=== PATIENT | female | born 1980 | race Caucasian/White ===

== ENCOUNTER 2017-02-10 17:02 | Emergency (ER) | payer OTHER ==
[2017-02-10 17:35] VITALS: BP 131/95
--- NOTE | 2017-02-10 18:13 | UC ---
Skin Complaint HPI - HPI Summary HPI Summary: LAST NIGHT FELT SPIDER BITE LEFT BUTTOCKS LAST NIGHT. BLISTER DEVELOPED. NO DISCHARGE. AREA IS RED TENDER AND FOWLER. 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 Negative: Fever , Chills, Cough, Chest Pain, Hoarseness, Throat Tightening, Rash, Drainage Related History: Insect Bite/Sting - Allergy/Home Medications Allergies/Adverse Reactions: Allergies Allergy/AdvReac Type Severity Reaction Status Date / Time Penicillins Allergy Unknown Verified 02/10/17 17:35 Reaction Details Review of Systems Constitutional: Negative Skin: Rash - LEFT BUTTOCKS Eyes: Negative ENT: Negative Respiratory: Negative Cardiovascular: Negative Gastrointestinal: Negative Genitourinary: Negative Motor: Negative Neurovascular: Negative Musculoskeletal: Negative Neurological: Negative Psychological: Negative All Other Systems Reviewed And Are Negative: Yes PMH/Surg Hx/FS Hx/Imm Hx Previously Healthy: Yes - Surgical History Surgical History: Yes Surgery Procedure, Year, and Place: E-ssure procedure 06/17/2014 done at [facility], GB removed; 7 weeks later 2X inguinal hernia repair done at 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 tonsillectomy at 8 years of age. - Family History Known Family History: Positive: None, Unknown - Social History Occupation: Employed Full-time Lives: With Family Alcohol Use: Occasionally Substance Use Type: None Smoking Status (MU): Light Every Day Tobacco Smoker Type: Cigarettes Amount Used/How Often: 1/2 PPD Length of Time of Smoking/Using Tobacco: 15 Years Have You Smoked in the Last Year: Yes Household Exposure Type: Cigarettes - Immunization History Most Recent Influenza Vaccination: March 2015 Physical Exam Triage Information Reviewed: Yes Appearance: Well-Appearing, No Pain Distress, Well-Nourished Vital Signs: Initial Vital Signs Temp 98.1 F 02/10/17 17:31 Pulse 93 02/10/17 17:31 Resp 14 02/10/17 17:31 BP 131/95 02/10/17 17:31 Pulse Ox 99 02/10/17 17:31 Vital Signs Reviewed: Yes Eye Exam: Normal ENT Exam: Normal ENT: Positive: Normal ENT inspection, Hearing grossly normal, TMs normal Dental Exam: Normal Neck exam: Normal Neck: Positive: Supple, Nontender, No Lymphadenopathy Respiratory Exam: Normal Respiratory: Positive: Chest non-tender, Lungs clear, Normal breath sounds, No respiratory distress Cardiovascular Exam: Normal Cardiovascular: Positive: RRR, No Murmur, Pulses Normal Abdominal Exam: Normal Abdomen Description: Positive: Nontender, No Organomegaly Musculoskeletal Exam: Normal Musculoskeletal: Positive: Strength Intact Neurological Exam: Normal Psychological Exam: Normal Skin: Positive: rashes - 3CM CIRCULAR ERYTHEMATOUS AREA LEFT BUTTOCKS WITH 1mm X1mm AREA OF PUSTULAR CENTRAL FLUCTUANCE Course/Dx - Course Course Of Treatment: PATIENT REFUSED TO HAVE ABSCESS INCISED. ANTIBIOTICS PRESCRIBED - Differential Diagnoses - Skin Complaint Differential Diagnoses: Allergic Reaction, Cellulitis, Contact Dermatitis, Eczema, MRSA, Scabies, Tick Born Illness, Tinea - Diagnoses Provider Diagnoses: INSCEST BITE LEFT BUTTOCKS, ABSCESS Discharge - Discharge Plan Condition: Stable Disposition: HOME Prescriptions: DOXYcycline CAP(*) [DOXYcycline 100MG CAP(*)] 100 mg PO BID #14 cap Patient Education Materials: Insect Bite or Sting (ED), Abscess (ED) Referrals: Cortney Orantes MD [Primary Care Provider] - Images Front/Back of Body, Lg ([place]): 1 - 3CM CIRCULAR ERYTHEMATOUS AREA LEFT BUTTOCKS WITH 1mm X1mm AREA OF PUSTULAR CENTRAL FLUCTUANCE
== END 2017-02-10 18:10 | disposition home or self-care (01) ==
LOC: UCCORT 17:02
DX: S30.860A Insect bite (nonvenomous) of lower back and pelvis, initial encounter (principal); W57.XXXA Bitten or stung by nonvenomous insect and other nonvenomous arthropods, initial encounter; Y93.9 Activity, unspecified; Y92.9 Unspecified place or not applicable; L02.31 Cutaneous abscess of buttock; Z88.0 Allergy status to penicillin; F17.210 Nicotine dependence, cigarettes, uncomplicated
CPT/HCPCS: 99211; G0463

== ENCOUNTER 2017-12-18 09:16 | Emergency (ER) | payer BC, OTHER ==
[2017-12-18 09:31] VITALS: BP 137/87
--- NOTE | 2017-12-18 10:08 | UC ---
Back Pain HPI - HPI Summary HPI Summary: patient states that last night she could not sleep due to neck and upper back pain which is prevented her from sleeping. She feels neck stiffness and thoracic pain which radiates forward to her chest, throbbing intermittently. She denies palpitations, SOB , numbness or weakness on arms. 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 She denies any triggering activities or lifting. 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 She smokes and is cutting back, has HTN on metoprolol. Motrin and tylenol are not working - History of Current Complaint Chief Complaint: UCChestPain Stated Complaint: Back and Chest Pain Hx Obtained From: Patient Hx Last Menstrual Period: s/p Essure and Uterine Ablation ?: No Onset/Duration: Sudden Onset, Lasting Hours Timing: Constant Severity Initially: Moderate Severity Currently: Severe Pain Intensity: 7 Back Pain: Is Discrete @ - thorax and neck Character: Dull, Throbbing Aggravating Factor(s): Movement Alleviating Factor(s): Nothing Associated Signs And Symptoms: Positive: Negative - Risk Factors AAA Risk Factors: Smoking Cauda Equina Risk Factors: Negative Epidural Abscess Risk Factors: Negative - Allergies/Home Medications Allergies/Adverse Reactions: Allergies Allergy/AdvReac Type Severity Reaction Status Date / Time Penicillins Allergy Unknown Verified 12/18/17 09:27 Reaction Details Home Medications: Home Medications Metoprolol Tartrate TAB* [Lopressor TAB*] 50 mg PO DAILY 12/18/17 [History Confirmed 12/18/17] PMH/Surg Hx/FS Hx/Imm Hx Cardiovascular History: Hypertension - Surgical History Surgical History: Yes Surgery Procedure, Year, and Place: E-ssure procedure 06/17/2014 done at [facility], GB removed; 7 weeks later 2X inguinal hernia repair done at [facility]; breast augumentation 2006 done in [facility] BX of cervix 2005 benign results; 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 tonsillectomy at 8 years of age. - Family History Known Family History: Positive: None, Unknown - Social History Alcohol Use: Occasionally Substance Use Type: None Smoking Status (MU): Heavy Every Day Tobacco Smoker Type: Cigarettes Amount Used/How Often: 1/2 PPD Length of Time of Smoking/Using Tobacco: Since Age 18 Have You Smoked in the Last Year: Yes Household Exposure Type: Cigarettes - Immunization History Most Recent Influenza Vaccination: March 2015 Review of Systems Cardiovascular: Chest Pain Musculoskeletal: Arthralgia, Myalgia All Other Systems Reviewed And Are Negative: Yes Physical Exam Triage Information Reviewed: Yes Appearance: Pain Distress, Obese Vital Signs: Initial Vital Signs Temp 98.6 F 12/18/17 09:28 Pulse 76 12/18/17 09:28 Resp 16 12/18/17 09:28 BP 137/87 12/18/17 09:28 Pulse Ox 100 12/18/17 09:28 Vital Signs Reviewed: Yes Eyes: Positive: Conjunctiva Clear ENT: Positive: Pharynx normal Neck: Positive: Supple, No Lymphadenopathy, Tenderness @ - along spinous processes and paraspinal muscle, supraspinatus Respiratory: Positive: Chest non-tender, Lungs clear, Normal breath sounds, No respiratory distress, No accessory muscle use Cardiovascular: Positive: RRR, No Murmur, Pulses Normal, Brisk Capillary Refill Abdomen Description: Positive: Nontender, No Organomegaly, Soft Bowel Sounds: Positive: Present Musculoskeletal Exam: Other - tenderness paraspinal palpation along T1-T7 Musculoskeletal: Positive: Strength Intact, ROM Intact, No Edema Neurological: Positive: Alert, Muscle Tone Normal Skin Exam: Normal Back Pain Course/Dx - Course Course Of Treatment: Patient in extreme pain, needs imaging services and MRI c- spine and T-spine, referred to hospital for testing, to take vicodin as prescribed . - Differential Dx/Diagnosis Provider Diagnoses: cervicalgia. Thoracic pain Discharge - Sign-Out/Discharge Documenting (check all that apply): Discharge/Admit/Transfer - Discharge Plan Condition: Guarded Disposition: TRANS HIGHER LVL OF CARE FAC Prescriptions: Hydrocodone/Acetaminophen [Vicodin 5-300 mg] 1 tab PO QID 2 Days #8 tab MDD 4p Patient Education Materials: Cervical Strain (ED), Thoracic Pain (ED), Hydrocodone/Acetaminophen (By mouth) Referrals: Cortney Orantes MD [Primary Care Provider] - Additional Instructions: Please transfer to ER for diagnostic work up for thoracic pain. - Billing Disposition and Condition Condition: GUARDED Disposition: Trans Higher Lvl of Care Fac
== END 2017-12-18 10:10 | disposition short-term general hospital (02) ==
LOC: UCCORT 09:16
DX: M54.2 Cervicalgia (principal); M54.6 Pain in thoracic spine; Z88.0 Allergy status to penicillin; I10 Essential (primary) hypertension; F17.210 Nicotine dependence, cigarettes, uncomplicated
CPT/HCPCS: 93005; 99212; G0463

== ENCOUNTER 2018-03-19 20:30 | Emergency (ER) | payer BC ==
--- OUTSIDE RECORDS SUMMARY | 2018-03-19 20:40 | XMS REPORT | Continuity of Care Document ---
:1980 External Reference #:[id number] Author Name Cortney Orantes M.D. Address [address] [place] [address] Care Team Providers Name Role Phone Cortney Orantes MD Primary Care Physician Unavailable Payers Type Date Identification Numbers Payment Provider Subscriber Policy Number: [id number] Excellus Calderon Canales PayID: [id number] [address] [address] [place] [address] Policy Number: [id number] [employer] Depze Canales PayID: [id number] [address] [place] [address] Expires: 2008 Policy Number: [id number] [employer] Shawnee Canales PayID: [id number] [address] [place] [address] Advance Directives Description No Information Available Problems Date Description Provider Status Onset: 10/05/2010 Abnormal weight gain Cortney Orantes M.D. Active Onset: 03/03/2012 Acute pharyngitis Eladia Fitch MD Active Onset: 03/03/2012 Otitis media Eladia Fitch MD Active Onset: 12/11/2013 Gastroesophageal reflux disease Cortney Orantes M.D. Active Onset: 12/11/2013 Tobacco user Cortney Orantes M.D. Active Family History Date Family Member(s) Problem(s) Comments General Heart Disease General Diabetes Type 2 General Breast Cancer General Mental Illness Father Hypertention Father Lung Cancer Mother Hypertention Mother Hypercholesterolemia Mother Heart Disease First Sister due to Heart Disease () Paternal Uncles Hepatitis Social History Type Date Description Comments Sex Unknown Tobacco Use Start: Unknown Current Cigarette Smoker 1 Pack Daily ETOH Use Rarely consumes alcohol Tobacco Use Start: Unknown Patient is a current smoker, smokes every day Smoking Status Reviewed: 07/13/17 Patient is a current smoker, smokes every day Seat Belt/Car Seat Always uses a seat belt Allergies, Adverse Reactions, Alerts Date Description Reaction Status Severity Comments 08/28/2007 PCN Active Medications Medication Date Status Form Strength Qnty SIG Indications Ordering Provider Mirian Spa 03/08 Active as M54.14 directed Gauss, for back M.D. pain recommeded by Complaint Evaluation Supervisor Hydrocodone-Aceta 12/20 Active Tablets 10-325mg 30tab tab 1 by M54.14 Cortney minophen s mouth Gauss, every M.D. -6hours as needed pain Alprazolam 07/13 Active Tablets 0.25mg 90tab 1 by mouth F41.1 s three Gauss, times a M.D. day as needed anxiety Nicotine 04/20 Active Patches 21mg/24HR 14uni apply one Cortney Transdermal 24HR ts patch to Lamberto, System Step 1 skin daily M.D. Metoprolol 03/28 Active Tablets 50mg 90tab Tab 1 By I11.9 Cortney Tartrate s Mouth Gauss, Daily M.D. Abdominal 02/23 Active Misc 1unit as K42.9 Cortney Binder/Elastic s directed Lamberto, Large M.D. Blood Pressure 05/28 Active Misc 1unit Dx HTN I11.9 Cortney Monitor s Gauss, Inflate M.D. Omeprazole 12/[address] 20mg 90cap 1 by mouth 530.81 s twice a Gauss, day M.D. Azithromycin 10/12 Hx Tablets 250mg 6tabs 2 by mouth J20.9 Cortney today, 1 Gauss, - by mouth M.D. 12/20 day 2 thru 5 Cheratussin ac 10/12 Hx Solution 100-10mg/ 118ml 5 J20.9 5ML milliliter Gauss, - s every 6 M.D. 12/20 hours needed cough Buspirone HCL 02/23 Hx Tablets 5mg 60tab 1 by mouth F41.1 s twice a Gauss, - day M.D. 07/13 Azithromycin 05/17 Hx Tablets 250mg 6tabs 2 by mouth J20.9 today, 1 Lamberto, - by mouth M.D. 02/23 day 2 thr 5 Align 05/26 Hx Capsules 4mg 90cap 1 po tid s Lamberto, - M.D. 07/13 Azithromycin 03/18 Hx Tablets 250mg 6tabs 2 by mouth J01.90 Cortney today, 1 Lamberto, - by mouth M.D. 05/26 day 2 thr 5 Tessalon Perles 03/18 Hx Capsules 100mg 60cap 1 by mouth J01.90 s every 8hr Lamberto, - as needed M.D. 05/26 Work Note 03/18 Hx THe above J01.90 is excused Lamberto, - from work M.D. 02/23 03/18 and 03/19/16 Furosemide 12/30 Hx Tablets 20mg 30tab 1 by mouth I11.9 s every in Lamberto, - the M.D. 07/13 Sphygmomanometer 05/27 Hx Misc 1unit as I11.9 Cortney Aneroid Manual /2014 s directed Lamberto, Blood Pressure - M.D. Monitor 05/28 Atenolol 05/06 Hx Tablets 50mg 90tab 1 By Mouth I11.9 Cortney s Daily In Lamberto, - Evening M.D. 03/28 Phendimetrazine 10/24 Hx Caps ER 105mg 30cap 1 po daily 783.1 Cortney Tartrate ER /2014 24HR s Lamberto, - M.D. 05/06 Proair HFA 10/24 Hx Aerosol 108(90Bas 8.500 2 puffs 4 493.92 Cortney e) gm x daily Lamberto, - mcg/Act M.D. 07/13 Chantix Starting 10/24 Hx Tablets 0.5mg X 30tab as Cortney Month 11 & 1 mg s directed Lamberto, - X 42 M.D. 03/18 Ciprofloxacin HCL 10/09 Hx Tablets 250mg 14tab 1 by mouth 599.00 s twice a Lamberto - day Alyssa.DErasto 10/15 Contrave 05/08 Hx Tablets ER 8-90mg 60tab 1 by mouth 783.1 Cortney 12HR s daily Elda Orantes M.D. 10/24 Bupropion HCL ER 12/11 Hx Tablets ER 150mg 90tab 1 by mouth 305.1 12HR s every day Elda Orantes M.D. 03/11 Mylanta Gas 09/11 Hx Capsules 125mg 90cap 1 po q 2 569.89 Cortney Relief s hours Lamberto Strength - M.DErasto 07/13 Work Note 09/11 Hx The above 553.10 is excused Lamberto - from work M.DErasto 10/24 until 09/18/13 Malathion 05/29 Hx Lotion 0.5% 8oz apply to skin from Lamberto, - neck down, M.Susan 06/06 leave on for 1/2 hour then rinse off thoroughly Physicial 05/17 Hx no contraindi - cations to 05/30 employment at [employer] identified at this visit Bontril PDM 05/15 Hx Tablets 35mg 90tab 1 po tid Elda Moreno M.D. 03/11 Proair HFA 03/06 Hx Aerosol 108(90Bas 8.500 2 puffs 4 493.92 e) mcg/ac gm x daily Elda Orantes M.D. 10/24 Ciprofloxin 03/06 Hx Tablets 500mg 14tab 1 po bid 493.92 Elda Moreno M.D. 05/15 Azithromycin 03/03 Hx Tablets 250mg 6tabs 2 po 466.00 today, 1 MD Constantine - po day 2 05/15 thru Work Note 03/03 Hx calderon will be off Lamberto, - work until M.D. 05/15 Azithromycin Hx Tablets 250mg 6tabs 2 po 466.00 Cortney today, 1 Lamberto, - po day 2 M.D. 11/17 thru Meloxicam 04/12 Hx Tablets 15mg 100ta 1 po qd 724.4 Elda Souza M.D. 05/15 Tramadol 04/12 Hx Tablets 37.5-325m 30tab 1 po q 6 724.4 Cortney Hydrochloride/ g s hours remberto Orantes taminophen - pain MSegundo 05/15 Bontril PDM 04/12 Hx Tablets 35mg 84tab 1 po 06/28 783.1 s mickey Orantes - before Dina 05/15 Soma 02/08 Hx Tablets 350mg 60tab 1 po bid 847.1 Elda Moreno M.D. 05/15 Cyclobenzaprine 01/07 Hx Tablets 10mg 60tab take 1 847.1 s tablet by Lamberto - mouth M.Susan 02/08 times a day if needed Ibuprofen 01/07 Hx Tablets 600mg 60tab 1 po q 724.4 s 6hrs prElda Hurtado M.D. 04/12 Chantix 01/07 Hx Tablets 0.5mg 1tabs as 305.1 directed; Lamberto - starter M.Susan 05/15 Ciprofloxacin HCL 11/03 Hx Tablets 250mg 20tab 1 po bid 599.0 Elda Moreno M.D. 01/07 Bontril PDM 10/05 Hx Tablets 35mg 84tab 1 po 06/28 783.1 nikhil Orantes - before Dina 01/07 Guaifenesin 07/08 Hx Tablets 200mg 60tab 1 po bid 784.91 Elda Moreno M.D. 08/25 Flagyl 12/13 Hx Tablets 500mg 20tab 1 po bid nikhil Fitch MD - 07/08 Seasonique 12/05 Hx Tablets Cortney Elda Orantes M.D. 07/08 Phentermine 09/26 Hx Capsules 37.5mg 30cap 1 po qd 783.1 Elda Moreno M.D. 10/05 Phentermine 09/10 Hx Capsules 30mg 60cap 1 po q day 783.1 Elda Moreno M.D. 09/26 Avelox 08/27 Hx Tablets 400mg 10tab 1 po qd Elda Michaels M.D. 11/04 Albuterol 08/27 Hx Aerosol 90mcg/Dos 1unit 2 puff qid 486 Cortney e Elda Moreno M.D. 11/04 Mucinex 08/27 Hx Tablets 600mg 30tab 1 PO bid 486 Elda Oneil M.D. 11/04 Depo-Provera Hx Suspension 150mg/ml 1 Inj Q3mo Unknown /0000 - 10/24 Medications Administered in Office Medication Date Status Form Strength Qnty SIG Indications Ordering Provider PPD Administered Injection Cortney Orantes, 8 M.DErasto PPD Administered Injection Nurse 6 PPD Administered Injection Nurse 5 PPD Administered Injection Cortney Orantes, 3 M.DErasto PPD Administered Injection Cortney Orantes, 1 MErastoDErasto PPD Administered Injection Nurse 0 Immunizations CPT Code Status Date Vaccine Lot # [id number] Given 03/18/2017 Influenza Virus (Afluria) Split Virus 3 Years [id number] Of Age And Older Q2037 Given 05/26/2016 Influenza Vaccine (Fluvirin) 1 Years Of Age Or [id number] Older Q2035 Given 03/21/2015 Influenza Virus (Afluria) Split Virus 3 Years [id number] Of Age And Older Q2037 Given 03/11/2014 Influenza Vaccine (Fluvirin) 1 Years Of Age Or [id number] Older Q2037 Given 05/15/2013 Influenza Vaccine (Fluvirin) 1 Years Of Age Or [id number] Older Q2037 Given 05/08/2012 Influenza Vaccine (Fluvirin) 3 Years Of Age Or Older Q2037 Given 05/08/2012 Influenza Vaccine (Fluvirin) 1 Years Of Age Or [id number] Older Q2036 Given 06/14/2011 Flulaval [id number] Given 06/14/2011 Influenza Vaccine [id number] Given 03/27/2010 Influenza Vaccine [id number] 84058 Given 03/21/2009 Influenza Vaccine 00352 Given 08/11/2007 DT Immunization DIP/Tet (History Only) Vital Signs Date Vital Result Comment 03/08/2018 11:10am BP Systolic 120 mmHg BP Diastolic 78 mmHg Height 64 inches 5'4" Weight 174.00 lb BMI (Body Mass Index) 29.9 kg/m2 01/30/2018 11:08am BP Systolic 140 mmHg BP Diastolic 80 mmHg Heart Rate 77 /min Respiratory Rate 18 /min Height 64 inches 5'4" Weight 174.00 lb BMI (Body Mass Index) 29.9 kg/m2 O2 % BldC Oximetry 97 % 01/03/2018 3:13pm BP Systolic 128 mmHg BP Diastolic 80 mmHg Heart Rate 73 /min Respiratory Rate 18 /min Height 64 inches 5'4" Weight 184.00 lb BMI (Body Mass Index) 31.6 kg/m2 O2 % BldC Oximetry 95 % 12/20/2017 11:24am BP Systolic 126 mmHg BP Diastolic 80 mmHg Heart Rate 83 /min Respiratory Rate 18 /min Height 64 inches 5'4" Weight 184.00 lb BMI (Body Mass Index) 31.6 kg/m2 O2 % BldC Oximetry 96 % 07/13/2017 1:35pm BP Systolic 128 mmHg BP Diastolic 70 mmHg Heart Rate 91 /min Height 64 inches 5'4" Weight 184.00 lb BMI (Body Mass Index) 31.6 kg/m2 04/25/2017 1:59pm BP Systolic 130 mmHg BP Diastolic 86 mmHg BP Systolic Recheck 110 mmHg BP Diastolic Recheck 82 mmHg 02/23/2017 3:46pm BP Systolic 130 mmHg BP Diastolic 80 mmHg 11/10/2016 3:51pm BP Systolic 122 mmHg BP Diastolic 74 mmHg Body Temperature 96.0 F 06/17/2016 10:30am BP Systolic 110 mmHg BP Diastolic 64 mmHg 05/26/2016 3:24pm BP Systolic 126 mmHg BP Diastolic 70 mmHg Height 66 inches 5'6" Weight 186.00 lb BMI (Body Mass Index) 30.0 kg/m2 03/18/2016 11:09am BP Systolic 120 mmHg BP Diastolic 68 mmHg Body Temperature 99.1 F 12/31/2015 3:41pm BP Systolic 122 mmHg BP Diastolic 84 mmHg Height 66 inches 5'6" Weight 183.00 lb BMI (Body Mass Index) 29.5 kg/m2 10/01/2015 3:34pm BP Systolic 130 mmHg BP Diastolic 80 mmHg Height 66 inches 5'6" Weight 181.00 lb BMI (Body Mass Index) 29.2 kg/m2 07/03/2015 2:20pm BP Systolic 118 mmHg BP Diastolic 78 mmHg 05/27/2015 3:26pm BP Systolic 112 mmHg BP Diastolic 60 mmHg BP Systolic Recheck 106 mmHg BP Diastolic Recheck 70 mmHg 05/06/2015 2:52pm BP Systolic 162 mmHg BP Diastolic 96 mmHg BP Systolic Recheck 160 mmHg BP Diastolic Recheck 90 mmHg 10/24/2014 12:15pm BP Systolic 132 mmHg BP Diastolic 64 mmHg 08/20/2014 2:13pm BP Systolic 130 mmHg BP Diastolic 70 mmHg 05/08/2014 3:21pm BP Systolic 144 mmHg BP Diastolic 90 mmHg 03/11/2014 12:15pm BP Systolic 128 mmHg BP Diastolic 88 mmHg Heart Rate 80 /min 12/11/2013 3:49pm BP Systolic 122 mmHg BP Diastolic 78 mmHg 09/11/2013 2:35pm BP Systolic 114 mmHg BP Diastolic 70 mmHg 07/31/2013 11:09am BP Systolic 122 mmHg BP Diastolic 76 mmHg Height 65 inches 5'5" Weight 163.00 lb BMI (Body Mass Index) 27.1 kg/m2 05/15/2013 2:49pm BP Systolic 130 mmHg BP Diastolic 84 mmHg Height 55 inches 4'7" Weight 164.00 lb BMI (Body Mass Index) 38.1 kg/m2 03/06/2012 11:44am BP Systolic 130 mmHg BP Diastolic 90 mmHg Body Temperature 98.2 F Height 55 inches 4'7" Weight 152.00 lb BMI (Body Mass Index) 35.3 kg/m2 03/03/2012 10:29am BP Systolic 102 mmHg BP Diastolic 70 mmHg Body Temperature 99.6 F 12/13/2011 11:10am BP Systolic 122 mmHg BP Diastolic 80 mmHg Height 66 inches 5'6" Weight 146.00 lb BMI (Body Mass Index) 23.6 kg/m2 11/18/2011 10:25am BP Systolic 130 mmHg BP Diastolic 80 mmHg 08/25/2011 11:02am BP Systolic 100 mmHg BP Diastolic 60 mmHg Body Temperature 99.2 F Height 66 inches 5'6" Weight 148.00 lb BMI (Body Mass Index) 23.9 kg/m2 06/14/2011 11:24am BP Systolic 122 mmHg BP Diastolic 70 mmHg Height 66 inches 5'6" Weight 149.00 lb BMI (Body Mass Index) 24.0 kg/m2 04/12/2011 1:28pm BP Systolic 112 mmHg BP Diastolic 70 mmHg 02/08/2011 10:41am BP Systolic 118 mmHg BP Diastolic 72 mmHg Height 63.5 inches 5'3.50" Weight 146.00 lb BMI (Body Mass Index) 25.5 kg/m2 01/11/2011 2:12pm BP Systolic 126 mmHg BP Diastolic 76 mmHg Height 63.5 inches 5'3.50" Weight 147.00 lb BMI (Body Mass Index) 25.6 kg/m2 01/07/2011 11:53am BP Systolic 120 mmHg BP Diastolic 60 mmHg Height 63.5 inches 5'3.50" Weight 146.00 lb BMI (Body Mass Index) 25.5 kg/m2 11/03/2010 3:13pm BP Systolic 124 mmHg BP Diastolic 74 mmHg Height 63.5 inches 5'3.50" Weight 147.00 lb BMI (Body Mass Index) 25.6 kg/m2 10/05/2010 1:46pm BP Systolic 121 mmHg BP Diastolic 70 mmHg Height 63.5 inches 5'3.50" Weight 152.00 lb BMI (Body Mass Index) 26.5 kg/m2 08/25/2009 12:08pm BP Systolic 132 mmHg BP Diastolic 90 mmHg Weight 135.00 lb 07/08/2009 10:57am BP Systolic 112 mmHg BP Diastolic 76 mmHg Weight 141.00 lb 12/13/2008 2:03pm BP Systolic 120 mmHg BP Diastolic 80 mmHg Weight 159.00 lb 11/04/2008 1:57pm BP Systolic 118 mmHg BP Diastolic 60 mmHg Height 63.5 inches 5'3.50" Weight 162.00 lb BMI (Body Mass Index) 28.2 kg/m2 09/27/2007 10:40am Height 63.5 inches 5'3.50" Weight 144.00 lb BMI (Body Mass Index) 25.1 kg/m2 09/11/2007 3:51pm BP Systolic 112 mmHg BP Diastolic 76 mmHg Height 63.5 inches 5'3.50" Weight 150.00 lb BMI (Body Mass Index) 26.2 kg/m2 08/28/2007 3:51pm BP Systolic 118 mmHg BP Diastolic 76 mmHg Height 63.5 inches 5'3.50" Weight 145.00 lb BMI (Body Mass Index) 25.3 kg/m2 Results Test Date Facility Test Result H/L Range Note CBS 07/11/2017 [facility] White Blood 10.1 K/uL 3.1-10.7 1 W/Automated [address] [place] [address] [phone] Red Blood Count 4.57 M/uL 3.90-5.40 Hemoglobin 14.4 gm/dL 11.6-15.8 Hematocrit 43.0 % 36.0-46.1 Mean Cell Volume 94.1 fl 80.9-99.0 Mean Corpuscular HGB 31.5 pg 25.9-32.7 Mean Corpuscular HGB Conc 33.5 g/dL 30.8-34.3 Platelet Count 360 K/uL 155-360 Red Cell Distri Width SD 43.9 fl 3-47 Red Cell Distri Width %CV 13.0 % 11.7-14.4 Mean Platelet Volume 9.9 fL 8.9-12.4 Neut% 66.9 % 40.4-72.8 Lymph % 22.9 % 20.0-42.0 [place] % 8.1 % 4.3-13.2 Eo% 1.7 % 0.0-6.6 Bas% 0.4 % 0.0-1.1 Neut# 6.76 K/uL 1.8-7.0 Lymph # 2.32 K/uL 1.0-4.0 [place] # 0.82 K/uL 0.3-0.9 Eos # 0.17 K/uL 0.0-0.5 Baso # 0.04 K/uL 0.0-0.1 Basic Metabolic 07/11/2017 [facility] Glucose 102 mg/ dL 74-[address] [place] [address] [phone] BUN 12 mg/dL 7-18 Creatinine 0.7 mg/dL 0.6-1.3 Glom Filtration Rate, Estimate >60 mL/min >60 If >60 mL/min >60 2 BUN/Creat 17.1 ratio Sodium 143 mmol/L 136-145 Potassium 4.0 mmol/L 3.5-5.1 Chloride 109 mmol/L High 98-107 Carbon Dioxide 25 mmol/L 21-32 Anion Gap 9 mEq/L 8-16 Calcium 8.4 mg/dL Low 8.5-10.1 LDL Cholesterol 07/11/2017 [facility] Cholesterol 205 mg/dL High <200 [address] [place] [address] [phone] Triglycerides 173 mg/dL High <150 4 HDL Cholesterol 34 mg/dL Low >40 5 LDL-Cholesterol 136 mg/dL < 100 6 Laboratory 04/28/2017 [facility] Urine HCG NEGATIVE Negative 7, 8 test finding [address] (Qualitative) [place] [address] [phone] Laboratory 11/29/2016 [facility] Rubella IgG 12.20 index Immune 9 test finding [address] Antibody >0.99 [place] [address] [phone] Rubeola Antibodies, Igg 186.0 AU/mL Immune >29.9 10 Mumps Antibodies, Igg 109.0 AU/mL Immune >10.9 11 Laboratory test 10/21/2016 [facility] H. Pylori Negative Negative 12, finding [address] Stool Antigen 13 [place] [address] [phone] Ova & Parasite 10/21/2016 [facility] Parasite No ova and [address] Concentrate ana <[place] [address] Exam NOTE> [phone] Permanent Trichrome Stain (SEE NOTE) 15 Cryptosporidium by Dfa NEGATIVE for Cry <SEE NOTE> 16 Urinalysis With 06/17/2016 [facility] Urine Color YELLOW Yellow [address] [place] [address] [phone] Urine Clarity CLEAR Clear Urine Glucose - Dipstick NEGATIVE mg/dL Negative Urine Bilirubin - Dipstick NEGATIVE Negative Urine Ketone NEGATIVE mg/dL Negative Urine Specific [place] 1.010 1.010-1.030 Urine Blood SMALL Negative Urine PH 6.5 6.5-7.5 Urine Protein - Dipstick NEGATIVE mg/dL Negative Urine Urobilinogen - Dipstick 0.2 E.U./dL 0.2-1.0 Urine Nitrite - Dipstick NEGATIVE Negative Urine Leuk Esterase NEGATIVE Negative Urine RBC 0-2 rbc/hpf 0-2 Urine WBC 0-2 wbc/hpf 0-7 Urine Epithelial Cells FEW /lpf None Seen Urine Bacteria FEW None Seen Source: URINE, CLEAN CAT <SEE NOTE> 18 Laboratory test 09/08/2015 [facility] Endometrial See Note [address] [place] [address] [phone] Basic Metabolic 04/26/2015 [facility] Glucose 101 mg/ dL 74-[address] [place] [address] [phone] BUN 10 mg/dL 7-18 Creatinine 0.7 mg/dL 0.6-1.3 Glom Filtration Rate, Estimate >60 mL/min >60 If >60 mL/min >60 20 BUN/Creat 14.2 ratio Sodium 140 mmol/L 136-145 Potassium 3.6 mmol/L 3.5-5.1 Chloride 108 mmol/L High 98-107 Carbon Dioxide 26 mmol/L 21-32 Anion Gap 6 mEq/L Low 8-16 Calcium 9.2 mg/dL 8.5-10.1 Laboratory test 04/26/2015 [facility] Magnesium 2.2 mg/dL 1.8-2.[address] [place] [address] [phone] CBS W/Automated 08/20/2014 [facility] White Blood 11.3 K/uL High 3.1-10.[address] [place] [address] [phone] Red Blood Count 4.41 M/uL 3.90-5.40 Hemoglobin 13.9 gm/dL 11.6-15.8 Hematocrit 41.8 % 36.0-46.1 Mean Cell Volume 94.8 fl 80.9-99.0 Mean Corpuscular HGB 31.5 pg 25.9-32.7 Mean Corpuscular HGB Conc 33.3 g/dL 30.8-34.3 Platelet Count 382 K/uL High 155-360 Red Cell Distri Width SD 44.2 fl 3-47 Red Cell Distri Width %CV 13.0 % 11.7-14.4 Mean Platelet Volume 10.1 fL 8.9-12.4 Neut% 66.7 % 40.4-72.8 Lymph % 23.5 % 17.0-46.1 [place] % 7.9 % 4.3-13.2 Eo% 1.5 % 0.0-6.6 Bas% 0.4 % 0.0-1.1 Neut# 7.54 K/uL High 1.0-7.0 Lymph # 2.65 K/uL 1.8-7.0 [place] # 0.89 K/uL 0.3-0.9 Eos # 0.17 K/uL 0.0-0.5 Baso # 0.04 K/uL 0.0-0.1 Laboratory 08/20/2014 [facility] [place] Screen NEGATIVE Negative test finding [address] (Heterophile) [place] [address] [phone] Throat-Beta 07/05/2014 [facility] Throat Beta (SEE NOTE) [address] [place] [address] [phone] Basic 05/10/2014 [facility] Glucose 73 mg/dL Low 74 -[address] [place] [address] [phone] BUN 12 mg/dL 7-18 Creatinine 0.9 mg/dL 0.6-1.3 Glom Filtration Rate, Estimate >60 mL/min >60 If >60 mL/min >60 22 BUN/Creat 13.3 ratio Sodium 138 mmol/L 136-145 Potassium 4.0 mmol/L 3.5-5.1 Chloride 107 mmol/L 98-107 Carbon Dioxide 28 mmol/L 21-32 Anion Gap 7 mEq/L Low 8-16 Calcium 9.2 mg/dL 8.5-10.1 CBC W/ Diff & 05/10/2014 [facility] White Blood 10.6 K/uL 3.1-10.[address] [place] [address] [phone] Red Blood Count 4.45 M/uL 3.90-5.40 Hemoglobin 13.9 gm/dL 11.6-15.8 Hematocrit 41.8 % 36.0-46.1 Mean Cell Volume 93.9 fl 80.9-99.0 Mean Corpuscular HGB 31.2 pg 25.9-32.7 Mean Corpuscular HGB Conc 33.3 g/dL 30.8-34.3 Platelet Count 371 K/uL High 155-360 Red Cell Distri Width SD 44.1 fl 3-47 Red Cell Distri Width %CV 13.0 % 11.7-14.4 Mean Platelet Volume 9.7 fL 8.9-12.4 Neut% 68.3 % 40.4-72.8 Lymph % 21.1 % 17.0-46.1 [place] % 8.5 % 4.3-13.2 Eo% 1.7 % 0.0-6.6 Bas% 0.4 % 0.0-1.1 Neut# 7.23 K/uL High 1.0-7.0 Lymph # 2.23 K/uL 0.8-3.4 [place] # 0.90 K/uL 0.3-0.9 Eos # 0.18 K/uL 0.0-0.5 Baso # 0.04 K/uL 0.0-0.1 LDL Cholesterol 05/10/2014 [facility] Cholesterol 206 mg/dL < 200 [address] [place] [address] [phone] Triglycerides 124 mg/dL < 150 24 HDL Cholesterol 39 mg/dL > 40 25 LDL-Cholesterol 142 mg/dL < 100 26 Laboratory test 05/10/2014 [facility] Serum Iron 75 g/dL 50-170 [address] [place] [address] [phone] Vitamin D,25-Hydroxy 20.0 ng/mL Low 30.0-100.0 28 Thyroid Stim Hormone 1.06 uIU/mL 0.36-3.74 Free T4 1.05 ng/dL 0.76-1.46 CBC W/Automated 03/06/2014 [facility] White Blood 13.5 K/uL High 3.1-10.[address] [place] [address] [phone] Red Blood Count 4.50 M/uL 3.90-5.40 Hemoglobin 14.6 gm/dL 11.6-15.8 Hematocrit 42.6 % 36.0-46.1 Mean Cell Volume 94.7 fl 80.9-99.0 Mean Corpuscular HGB 32.4 pg 25.9-32.7 Mean Corpuscular HGB Conc 34.3 g/dL 30.8-34.3 Platelet Count 366 K/uL High 155-360 Red Cell Distri Width SD 43.1 fl 3-47 Red Cell Distri Width %CV 12.8 % 11.7-14.4 Mean Platelet Volume 10.5 fL 8.9-12.4 Neut% 66.5 % 40.4-72.8 Lymph % 24.6 % 17.0-46.1 [place] % 7.3 % 4.3-13.2 Eo% 1.1 % 0.0-6.6 Bas% 0.5 % 0.0-1.1 Neut# 8.97 K/uL High 1.0-7.0 Lymph # 3.32 K/uL 0.8-3.4 [place] # 0.98 K/uL High 0.3-0.9 Eos # 0.15 K/uL 0.0-0.5 Baso # 0.07 K/uL 0.0-0.1 Laboratory test finding 03/06/2014 [facility] CK 126 U/L 26-[address] [place], [place] [id number] [phone] Troponin-I < 0.02 ng/mL 0.00-0.50 29 Comprehensive Metabolic 03/06/2014 [facility] Glucose 86 mg/dL 76-[address] [place], [place] [id number] [phone] BUN 7 mg/dL 5-23 Creatinine 0.9 mg/dL 0.5-1.4 Glom Filtration Rate, Estimate >60 mL/min >60 If >60 mL/min >60 30 BUN/Creat 7.7 ratio Sodium 140 mmol/L 136-145 Potassium 3.5 mmol/L 3.5-5.1 Chloride 109 mmol/L High 98-107 Carbon Dioxide 23 mEq/L 18-29 Anion Gap 12 mEq/L 8-16 Calcium 9.4 mg/dL 8.5-10.1 Total Protein 7.5 g/dL 6.3-8.0 Albumin 4.2 g/dL 3.5-5.0 Globulin 3.3 g/dL 1.9-4.3 Alb/Glob 1.3 ratio Bilirubin,Total 0.3 mg/dL 0.2-1.2 Sgot/Ast 11 U/L Low 16-40 SGPT/Alt 21 U/L Low 30-65 Alkaline Phosphatase 111 U/L 50-136 Laboratory test 09/18/2013 [facility] Lipase 68 U/L 28-[address] [place], [place] [id number] [phone] CBC 09/18/2013 [facility] White Blood 19.4 K/uL High 3.1-10.[address] [place] [address] [phone] Red Blood Count 4.42 M/uL 3.90-5.40 Hemoglobin 13.7 gm/dL 11.6-15.8 Hematocrit 40.9 % 36.0-46.1 Mean Cell Volume 92.5 fl 80.9-99.0 Mean Corpuscular HGB 31.0 pg 25.9-32.7 Mean Corpuscular HGB Conc 33.5 g/dL 30.8-34.3 Platelet Count 347 K/uL 155-360 Red Cell Distri Width %CV 13.2 % 11.7-14.4 Mean Platelet Volume 9.8 fL 8.9-12.4 Laboratory test 09/18/2013 [facility] Urine HCG NEGATIVE Negative [address] (Qualitative) [place] [address] [phone] Laboratory test 06/29/2013 [facility] Gallbladder See Note [address] [place] [address] [phone] Basic Metabolic 12/06/2011 [facility] Glucose 87 mg/ dL 76-[address] [place] [address] [phone] BUN 11 mg/dL 5-23 Creatinine 0.9 mg/dL 0.5-1.4 Glom Filtration Rate, Estimate >60 mL/min >60 If >60 mL/min >60 33 BUN/Creat 12.2 ratio Sodium 141 mmol/L 136-145 Potassium 3.5 mmol/L 3.5-5.1 Chloride 110 mmol/L High 98-107 Carbon Dioxide 26 mEq/L 18-29 Anion Gap 9 mEq/L 8-16 Calcium 8.9 mg/dL 8.5-10.1 Laboratory test 12/06/2011 [facility] Thyroid Stim 0.88 uIU/mL 0.49-4.[address] [place] [address] [phone] Free T4 1.02 ng/dL 0.71-1.85 CBS W/Automated 12/06/2011 [facility] White Blood 12.6 K/uL High 3.1-10.[address] [place] [address] [phone] Red Blood Count 4.51 M/uL 3.90-5.40 Hemoglobin 14.3 gm/dL 11.6-15.8 Hematocrit 42.2 % 36.0-46.1 Mean Cell Volume 93.6 fl 80.9-99.0 Mean Corpuscular HGB 31.7 pg 25.9-32.7 Mean Corpuscular HGB Conc 33.9 g/dL 30.8-34.3 Platelet Count 339 K/uL 155-360 Red Cell Distri Width SD 44.4 fl 3-47 Red Cell Distri Width %CV 13.3 % 11.7-14.4 Mean Platelet Volume 10.2 fL 8.9-12.4 Neut% 72.4 % 40.4-72.8 Lymph % 18.8 % 17.0-46.1 [place] % 7.0 % 4.3-13.2 Eo% 1.3 % 0.0-6.6 Bas% 0.5 % 0.0-1.1 Neut# 9.12 K/uL High 1.0-7.0 Lymph # 2.37 K/uL 0.8-3.4 [place] # 0.88 K/uL 0.3-0.9 Eos # 0.17 K/uL 0.0-0.5 Baso # 0.06 K/uL 0.0-0.1 1 I11.9 F41.1 K42.9 2 Note: Persistent reduction for 3 months or more in an eGFR <60 mL/min/1.73 m2 defines CKD. Patients with eGFR values >/=60 mL/min/1.73 m2 may also have CKD if evidence of persistent proteinuria is present. The original MDRD equation for estimated GFR is not valid for patients less than 18 years of age. Additional information may be found at www.k[facility].org. 3 Reference Guidelines*: Desirable: ........... < 200 mg/dL Borderline High: ..... 200-239 mg/dL High: ................ >=240 mg/dL * The National Cholesterol Education Program (NCEP) 4 Reference Guidelines*: Normal: ............. < 150 mg/dL Borderline High: .... 150-199 mg/dL High: ............... 200-499 mg/dL Very High: .......... > 500 mg/dL * Source: National Cholesterol Education Program (NCEP) 5 Reference Guidelines*: Low HDL: ..... < 40 mg/dL Normal: ..... 40-60 mg/dL Desirable: ... > 60 mg/dL *The National Cholesterol Education Program(NCEP) 6 Reference Guidelines*: Optimal:........... <100 mg/dL Near Optimal....... 100-129 mg/dL Borderline High.... 130-159 mg/dL High............... 160-189 mg/dL Very High.......... >=190 mg/dL * Source: National Cholesterol Education Program (NCEP) 7 CONSULT ONLY 04/25/17 10;30 [facility] K43.2 82241 8 FIRST MORNING SPECIMENS GENERALLY CONTAIN THE HIGHEST CONCENTRATION OF HCG AND ARE RECOMMENDED FOR EARLY DETECTION OF . Method: Quidel QuickVue One-Step Immunoassay 9 Non-immune <0.90 Equivocal 0.90 - 0.99 Immune >0.99 Performed at: - [facility] [id number] [employer] [place] Type: Jeri Foster MD, Phone: [phone] Negative <25.0 Equivocal 25.0 - 29.9 Positive >29.9 Presence of antibodies to Rubeola is presumptive evidence of immunity except when acute infection is suspected. 11 Negative <9.0 Equivocal 9.0 - 10.9 Positive >10.9 A positive result generally indicates past exposure to Mumps virus or previous vaccination. Performed at: [address] [id number] [employer] [place] Type: Jeri Foster MD, Phone: [phone] R14.0 13 Performed at: [address] [id number] [employer] [place] Type: Jeri Foster MD, Phone: [phone] No ova and parasites seen by concentrate exam 15 No ova or parasites seen on permanent trichrome stain. 16 NEGATIVE for Cryptosporidium by DFA Testing Performed by: [place] [address] ORANTES; POSS HEART ATTACK YESTERD 18 URINE, CLEAN CATCH 19 OPERATION/PROCEDURE Hysteroscopy, D+C DIAGNOSIS: "UTERUS, ENDOMETRIUM, CURETTAGE": - INACTIVE LOWER UTERINE SEGMENT ENDOMETRIUM WITH TUBAL METAPLASIA AND FOCAL STROMAL BREAKDOWN. - NO EVIDENCE OF HYPERPLASIA OR NEOPLASIA. /clf 1250 GROSS Received in formalin in a properly labeled container with the patient's name and accession number designated, "ENDOMETRIAL CURETTINGS". The specimen consists of a small amount of red soft tissue measuring 0.8 x 0.2 x 0.2 cm. Submitted entirely, one cassette. /clf PRE OPERATIVE DIAGNOSIS Excessive and frequent menstruation REVIEW CODE CODE: I Signed Electronically signed Albino MCINTYRE MD [id number] 20 Note: Persistent reduction for 3 months or more in an eGFR <60 mL/min/1.73 m2 defines CKD. Patients with eGFR values >/=60 mL/min/1.73 m2 may also have CKD if evidence of persistent proteinuria is present. The original MDRD equation for estimated GFR is not valid for patients less than 18 years of age. Additional information may be found at www.kdoqi.org. 21 RUN DATE: 07/08/14 [facility] LAB LIVE PAGE 1 RUN TIME: [address] [place] [id number] Specimen Inquiry Name: JOSECALDERON Alyssa : [address]: Luis Severino MD Acct: [id number] Unit: [id number] AGE: 33 Location: [facility] Re07/05/14 SEX: F Status: DEP ER SPEC: [id number] ARSH: 07/05/14-[address] [facility] [address]: Luis Severino MD REQ: [id number] RECD: 07/06/14964 STATUS: COMP [facility] DR: Cortney Orantes MD _ SOURCE: THROAT SPDESC: ORDERED: Throat Beta Str Procedure Result Verified Site Throat Beta Strep Culture Final 07/08/14- 807 ML Negative For Group A Beta Streptococcus END OF REPORT * ML=Testing performed at Main Lab DEPARTMENT OF PATHOLOGY, [address] [place] [address] Michael Dhillon M.D. Director [facility] # [id number] 22 Note: Persistent reduction for 3 months or more in an eGFR <60 mL/min/1.73 m2 defines CKD. Patients with eGFR values >/=60 mL/min/1.73 m2 may also have CKD if evidence of persistent proteinuria is present. The original MDRD equation for estimated GFR is not valid for patients less than 18 years of age. Additional information may be found at www.kdoqi.org. 23 Reference Guidelines*: Desirable: ........... < 200 mg/dL Borderline High: ..... 200-239 mg/dL High: ................ >=240 mg/dL * The National Cholesterol Education Program (NCEP) 24 Reference Guidelines*: Normal: ............. < 150 mg/dL Borderline High: .... 150-199 mg/dL High: ............... 200-499 mg/dL Very High: .......... > 500 mg/dL * Source: National Cholesterol Education Program (NCEP) 25 Reference Guidelines*: Low HDL: ..... < 40 mg/dL Normal: ..... 40-60 mg/dL Desirable: ... > 60 mg/dL *The National Cholesterol Education Program(NCEP) 26 Reference Guidelines*: Optimal:........... <100 mg/dL Near Optimal....... 100-129 mg/dL Borderline High.... 130-159 mg/dL High............... 160-189 mg/dL Very High.......... >=190 mg/dL * Source: National Cholesterol Education Program (NCEP) 27 QUERY: Is the Patient Fasting? N 28 Vitamin D deficiency has been defined by the [place] of Medicine and an Endocrine Society practice guideline as a level of serum 25-OH vitamin D less than 20 ng/mL (1,2). The Endocrine Society went on to further define vitamin D insufficiency as a level between 21 and 29 ng/mL (2). 1. IOM ([place] of Medicine). 2010. Dietary reference intakes for calcium and D. [place]: The National Academies Press. 2. Mikhail MF, Trina NC, James HICKMAN, et al. Evaluation, treatment, and prevention of vitamin D deficiency: an Endocrine Society clinical practice guideline. JCEM. 2010; 96(7):1911-30. Performed at: RN - [facility] [address] [id number] [employer] [place] Type: Jeri Foster MD, Phone: [phone] 29 0.0 - 0.045 ng/mL: Normal 0.046 - 0.5 ng/mL: Suggestive 0.6 - 1.5 ng/mL: Consistent 30 Note: Persistent reduction for 3 months or more in an eGFR <60 mL/min/1.73 m2 defines CKD. Patients with eGFR values >/=60 mL/min/1.73 m2 may also have CKD if evidence of persistent proteinuria is present. The original MDRD equation for estimated GFR is not valid for patients less than 18 years of age. Additional information may be found at www.kdoqi.org. 31 FIRST MORNING SPECIMENS GENERALLY CONTAIN THE HIGHEST CONCENTRATION OF HCG AND ARE RECOMMENDED FOR EARLY DETECTION OF . 32 OPERATION/PROCEDURE Lap. cholecystectomy DIAGNOSIS: "GALLBLADDER, CHOLECYSTECTOMY": CHRONIC CHOLECYSTITIS, AND CHOLELITHIASIS. NO EVIDENCE OF DYSPLASIA NOR NEOPLASIA APPRECIATED. Yesenia GROSS Received in formalin labeled, "GALLBLADDER" is an 8.9 x 3.1 x 1.9 cm. schulte, rubbery gallbladder that is previously opened. It has a smooth schulte to light purple serosal surface. Upon opening it contains approximately 5 mL of numerous dark yellow -green stones measuring up to 1.1 cm. in greatest dimension. The wall of the gallbladder measures up to 0.5 cm. in thickness. The mucosa is dark green and velvety without mcgrath streaks. No tumor or necrosis is seen. Crane Helper sections are submitted in one block. Yesenia MICROSCOPIC Sections show gallbladder mucosa lined by columnar epithelium with focal synechia. The submucosa has a mild infiltrate of lymphocytes and plasma cells. The muscular wall is slightly fibrotic and hypertrophied. PRE OPERATIVE DIAGNOSIS Distended gallbladder, with cholelithiasis REVIEW CODE CODE: I MIO Ann MD 07/03/13 1306 33 Note: Persistent reduction for 3 months or more in an eGFR <60 mL/min/1.73 m2 defines CKD. Patients with eGFR values >/=60 mL/min/1.73 m2 may also have CKD if evidence of persistent proteinuria is present. The original MDRD equation for estimated GFR is not valid for patients less than 18 years of age. Additional information may be found at www.kdoqi.org. Procedures Date Code Description Status 12/19/2017 17138 EKG-Tracing & Report Completed 05/08/2015 11305 Echocardiography Completed 05/08/2015 76333 EKG-Tracing & Report Completed Encounters Type Date Location Provider Dx Diagnosis Office Visit 01/30/2018 Main Office Cortney Orantes M.D. M54.14 Radiculopathy , 11:00a thoracic region Office Visit 01/03/2018 Main Office Cortney Orantes M.D. M54.14 Radiculopathy , 3:15p thoracic region Office Visit 12/20/2017 Main Office Cortney Orantes M.D. M54.14 Radiculopathy , 11:00a thoracic region Office Visit 10/12/2017 Main Office Cortney Orantes M.D. J20.9 Acute bronchitis, 3:00p unspecified Office Visit 07/13/2017 Main Office oCrtney Orantes M.D. I11.9 Hypertensive heart 1:30p disease without heart failure F41.1 Generalized anxiety disorder Office Visit 04/25/2017 1:45p Main Office Cortney Orantes I11.9 Hypertensive heart M.D. disease without heart failure K42.9 Umbilical hernia without obstruction or gangrene Office Visit 02/23/2017 3:30p Main Office Cortney Orantes K42.9 Umbilical hernia M.D. without obstruction or gangrene F41.1 Generalized anxiety disorder Office Visit 06/17/2016 10:30a Main Office Cortney Orantes B33.23 Viral pericarditis M.D. Office Visit 05/26/2016 3:30p Main Office Cortney Orantes I11.9 Hypertensive heart M.D. disease without heart failure Office Visit 03/18/2016 10:45a Main Office Cortney Orantes, J01.90 Acute sinusitis, M.D. unspecified Office Visit 10/01/2015 3:15p Main Office Cortney Orantes, I11.9 Hypertensive heart M.D. disease without heart failure Office Visit 07/03/2015 2:15p Main Office Cortney Orantes, I11.9 Hypertensive heart M.D. disease without heart failure G47.33 Obstructive sleep apnea (adult) (pediatric) Office Visit 05/27/2015 3:15p Main Office Cortney Orantes, I11.9 Hypertensive heart M.D. disease without heart failure K58.0 Irritable bowel syndrome with diarrhea Office Visit 05/06/2015 2:45p Main Office Cortney Orantes I11.9 Hypertensive heart M.D. disease without heart failure Office Visit 10/24/2014 11:45a Main Office Cortney Orantes, 402.10 Hypertensive Heart M.D. Disease Benign W/O Heart Failure 783.1 Weight Gain Abnormal 564.1 Irritable Bowel Syndrome Office Visit 08/20/2014 2:00p Main Office Cortney Orantes 075 Mononucleosis M.D. Infectious Office Visit 05/08/2014 3:00p Main Office Cortney Orantes, 783.1 Weight Gain Abnormal M.D. 402.10 Hypertensive Heart Disease Benign W/O Heart Failure 530.81 Esophageal Reflux Office Visit 03/11/2014 10:45a Main Office Cortney Orantes, 402.10 Hypertensive Heart M.D. Disease Benign W/O Heart Failure V04.81 Need For Prophylactic Vaccination & Inoculation/Influenza Office Visit 12/11/2013 3:15p Main Office Cortney Orantes M.D. 530.81 Esophageal Reflux 305.1 Tobacco Use Disorder Office Visit 09/11/2013 2:45p Main Office Cortney Orantes M.D. 553.10 Umbilical Hernia 569.89 Intestine Disorders Other Office Visit 07/31/2013 10:45a Main Office Cortney Orantes M.D. 783.1 Weight Gain Abnormal V67.09 Follow Up Examination Following Other Surgery Office Visit 05/15/2013 Main Office Cortney Orantes V04.81 Need For Prophylactic 2:15p MSegundo Vaccination & Inoculation/Influenza V70.0 Examination General Medical Routine AT Health Care Facility Office Visit 03/06/2012 11:30a Main Office Cortney Orantes M.D. 466.00 Acute Bronchitis 493.92 Asthma Unspec W/ Acute Exacerbation GENERAL General Office Visit 03/03/2012 10:45a Main Office Eladia Fitch MD 462 Pharyngitis Acute 382.9 Otitis Media Unspec GENERAL General Office Visit 12/13/2011 11:00a Main Office Cortney Orantes 214.1 Lipoma Other Skin And M.D. Subcutaneous Tissue 724.4 Neuritis Or Radiculitis Thoracic Or Lumbosacral Unspec Office Visit 11/18/2011 10:15a Main Office Cortney Orantes 214.1 Lipoma Other Skin And M.D. Subcutaneous Tissue 783.1 Weight Gain Abnormal Office Visit 08/25/2011 10:45a Main Office Cortney Orantes M.D. 466.00 Acute Bronchitis 579.0 Celiac Disease 783.1 Weight Gain Abnormal Office Visit 06/14/2011 11:00a Main Office Cortney Orantes M.D. 783.1 Weight Gain Abnormal 724.4 Neuritis Or Radiculitis Thoracic Or Lumbosacral Unspec V04.81 Need For Prophylactic Vaccination & Inoculation/Influenza Office Visit 04/12/2011 1:30p Main Office Cortney Orantes 724.4 Neuritis Or M.D. Radiculitis Thoracic Or Lumbosacral Unspec 783.1 Weight Gain Abnormal Office Visit 02/08/2011 10:30a Main Office Cortney Orantes M.D. 847.1 Sprains & Strains Thoracic 305.1 Tobacco Use Disorder Office Visit 01/11/2011 2:15p Main Office Cortney Orantes 737.39 Scoliosis & M.D. Kyproscoliosis Other 579.0 Celiac Disease Office Visit 01/07/2011 12:00p Main Office Cortney Orantes M.D. 847.1 Sprains & Strains Thoracic 305.1 Tobacco Use Disorder Office Visit 11/03/2010 3:00p Main Office Cortney Orantes M.D. 599.0 UTI Urinary Tract Infection Site Not Spec V70.8 Examination General Medical Other Spec Office Visit 10/05/2010 1:30p Main Office Cortney Orantes 783.1 Weight Gain Abnormal M.D. Office Visit 08/25/2009 10:30a Main Office Cortney Orantes, 300.02 Anxiety Disorder M.D. Generalized V70.8 Examination General Medical Other Spec Office Visit 07/08/2009 10:45a Main Office Cortney Orantes, 493.90 Asthma Unspec W/O M.D. Status Asthmaticus 783.1 Weight Gain Abnormal 784.91 Postnasal Drip Office Visit 12/13/2008 12:40p Main Office Eladia Fitch MD 599.0 UTI Urinary Tract Infection Site Not Spec GENERAL General Office Visit 11/04/2008 1:45p Main Office Cortney Orantes, 783.1 Weight Gain Abnormal M.D. Office Visit 09/27/2007 10:15a Main Office Cortney Orantes, 783.1 Weight Gain Abnormal M.D. Office Visit 09/11/2007 3:30p Main Office Cortney Orantes, 493.90 Asthma Unspec W/O M.D. Status Asthmaticus 783.1 Weight Gain Abnormal Office Visit 08/28/2007 3:30p Main Office Cortney Orantes M.D. 486 Pneumonia Organism Unspec Plan of Treatment 03/08/2018 - Cortney Orantes M.D.M54.14 Radiculopathy, thoracic regionNew Medication:Swim Spa - as directed for back pain recommeded by Spine SpecialistNew Therapy:Comments:has seen [facility] needs to strengthen core muscles, PT referral doneF41.1 Generalized anxiety disorderComments: exercised regularly, discussed stress reduction techniques buspirone was not effective so discussed pro's and cons of sedative will try xanax, discussed habit forming potential
[2018-03-19 20:48] VITALS: BP 147/84
[2018-03-19] MEDS ORDERED: diPHENhydraMINE PO* 25 MG PO ONE (20:58)
[2018-03-19] MEDS ORDERED: predniSONE TAB* 10 MG PO ONE (20:59)
--- NOTE | 2018-03-19 21:42 | UC ---
Eye Complaint HPI - HPI Summary HPI Summary: Pt presents with c/o bilateral lower lid swelling. That began ~ 2 hours prior to arrival. Pt states that eyes feel itchy. Denies, urticaria, lip, tongue, or throat swelling. - History of Current Complaint Chief Complaint: JONNIEkin Stated Complaint: SWELLING OF EYES Time Seen by Provider: 03/19/18 20:50 Hx Obtained From: Patient Hx Last Menstrual Period: s/p Essure and Uterine Ablation ?: No Onset/Duration: Sudden Onset, Lasting Hours, Still Present Severity Initially: Mild Severity Currently: Mild Pain Intensity: 8 Pain Scale Used: 0-10 Numeric Location of Injury: Eye Lid (lower) Associated Signs And Symptoms: Positive: Swelling - Risk Factors Penetrating Injury Risk Factor: Negative Globe Rupture Risk Factors: Negative Optic Artery Occlusion Risk Factors: Negative - Allergies/Home Medications Allergies/Adverse Reactions: Allergies Allergy/AdvReac Type Severity Reaction Status Date / Time Penicillins Allergy Unknown Verified 03/19/18 20:48 Reaction Details Home Medications: Home Medications ALPRAZolam TAB* [Xanax TAB*] 0.25 mg PO Q8H PRN 03/19/18 [History Confirmed ] PMH/Surg Hx/FS Hx/Imm Hx Previously Healthy: Yes Cardiovascular History: Hypertension - Surgical History Surgical History: Yes Surgery Procedure, Year, and Place: E-ssure procedure 06/17/2014 done at [facility], GB removed; 7 weeks later 2X inguinal hernia repair done at [facility]; breast augumentation 2007 done in [facility] BX of cervix 2006 benign results; 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 tonsillectomy at 8 years of age. - Family History Known Family History: Positive: None, Unknown - Social History Occupation: Employed Full-time Lives: With Family Alcohol Use: Occasionally Substance Use Type: None Smoking Status (MU): Heavy Every Day Tobacco Smoker Type: Cigarettes Amount Used/How Often: 1/2 PPD Length of Time of Smoking/Using Tobacco: Since Age 18 Have You Smoked in the Last Year: Yes Household Exposure Type: Cigarettes - Immunization History Most Recent Influenza Vaccination: March 2015 Review of Systems Constitutional: Negative Skin: Negative Eyes: Other - lower eyelid swelling ENT: Negative Respiratory: Negative Cardiovascular: Negative Gastrointestinal: Negative Genitourinary: Negative Motor: Negative Neurovascular: Negative Musculoskeletal: Negative Neurological: Negative Psychological: Negative Is Patient Immunocompromised?: No All Other Systems Reviewed And Are Negative: Yes Physical Exam Triage Information Reviewed: Yes Appearance: Well-Appearing Vital Signs: Initial Vital Signs Temp 97.6 F 03/19/18 20:41 Pulse 72 03/19/18 20:41 Resp 16 03/19/18 20:41 BP 147/84 03/19/18 20:41 Pulse Ox 97 03/19/18 20:41 Vital Signs Reviewed: Yes Eyes: Positive: Other: - lower eye lid ENT Exam: Normal Dental Exam: Normal Neck exam: Normal Respiratory Exam: Normal Cardiovascular Exam: Normal Musculoskeletal Exam: Normal Neurological Exam: Normal Psychological Exam: Normal Skin Exam: Normal Eye Complaint Course/Dx - Differential Dx/Diagnosis Differential Diagnosis/HQI/PQRI: Other - lower eye lid swelling Provider Diagnoses: angio edema. allergic reaction Discharge - Sign-Out/Discharge Documenting (check all that apply): Patient Departure All imaging exams completed and their final reports reviewed: No Studies - Discharge Plan Condition: Stable Disposition: HOME Prescriptions: predniSONE TAB* [Deltasone 20 MG TAB*] 20 mg PO DAILY #3 tab Patient Education Materials: Angioedema (ED) Referrals: Cortney Orantes MD [Primary Care Provider] - If Needed - Billing Disposition and Condition Condition: STABLE Disposition: Home
== END 2018-03-19 21:14 | disposition home or self-care (01) ==
LOC: UCCORT 20:30
DX: F17.210 Nicotine dependence, cigarettes, uncomplicated (principal); T78.3XXA Angioneurotic edema, initial encounter; T78.40XA Allergy, unspecified, initial encounter; X58.XXXA Exposure to other specified factors, initial encounter; Z88.0 Allergy status to penicillin; I10 Essential (primary) hypertension
CPT/HCPCS: 99212; A9270-GY; G0463; J7512

== ENCOUNTER 2019-05-16 14:26 | Emergency (ER) | payer SELFPAY ==
[2019-05-16 15:11] VITALS: BP 141/92
--- NOTE | 2019-05-16 16:27 | UC ---
Back Pain HPI - HPI Summary HPI Summary: 2-year-old woman comes in with a chief complaint of running out of her chronic Grandy pain medications for her chronic back pain. Patient has a chronic back pain with multiple bulging disks. She gets Grandy 5/325 three a day. She has enough medications for today the and tomorrow the . Checked I stop and her last refill of Grandy 90 tablets was on 18 April 2019. - History of Current Complaint Chief Complaint: UCGeneralIllness Stated Complaint: MED REFILL Time Seen by Provider: 05/16/19 15:41 Hx Last Menstrual Period: s/p Essure and Uterine Ablation Pain Intensity: 0 - Allergies/Home Medications Allergies/Adverse Reactions: Allergies Allergy/AdvReac Type Severity Reaction Status Date / Time Penicillins Allergy Unknown Verified 05/16/19 15:09 Reaction Details Home Medications: Home Medications Hydrocodone/Acetaminophen [Vicodin 5-300 mg Tablet] 1 tab PO TID MDD 4p [History] PMH/Surg Hx/FS Hx/Imm Hx Previously Healthy: Yes - chronic back pain - Surgical History Surgical History: Yes Surgery Procedure, Year, and Place: E-ssure procedure 06/17/2014 done at [facility], GB removed; 7 weeks later 2X inguinal hernia repair done at [facility]; breast augumentation 2006 done in [facility].; BX of cervix 2006 benign results; 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 tonsillectomy at 8 years of age. - Family History Known Family History: Positive: None, Unknown - Social History Alcohol Use: Occasionally Substance Use Type: None Smoking Status (MU): Heavy Every Day Tobacco Smoker Type: Cigarettes Amount Used/How Often: 1/2 PPD Length of Time of Smoking/Using Tobacco: Since Age 18 Have You Smoked in the Last Year: Yes Household Exposure Type: Cigarettes - Immunization History Most Recent Influenza Vaccination: March 2015 Review of Systems All Other Systems Reviewed And Are Negative: Yes Constitutional: Positive: Negative Skin: Positive: Negative Eyes: Positive: Negative ENT: Positive: Negative Respiratory: Positive: Negative Cardiovascular: Positive: Negative Gastrointestinal: Positive: Negative Genitourinary: Positive: Negative Motor: Positive: Negative Neurovascular: Positive: Negative Musculoskeletal: Positive: Other: - see hpi Neurological: Positive: Negative Psychological: Positive: Negative Is Patient Immunocompromised?: No Physical Exam Triage Information Reviewed: Yes Appearance: Well-Appearing, No Pain Distress, Well-Nourished Vital Signs: Initial Vital Signs Temp 98.3 F 05/16/19 15:06 Pulse 100 05/16/19 15:06 Resp 15 05/16/19 15:06 BP 141/92 05/16/19 15:06 Pulse Ox 98 05/16/19 15:06 Vital Signs Reviewed: Yes Eye Exam: Normal Eyes: Positive: Conjunctiva Clear Respiratory: Positive: Lungs clear, Normal breath sounds, No respiratory distress Cardiovascular: Positive: RRR Musculoskeletal: Positive: Other: - Patient is tender to palpation the length of her spine. Strength is normal and legs and arms. Neurological: Positive: Alert Psychological: Positive: Age Appropriate Behavior Skin Exam: Normal Back Pain Course/Dx - Course Course Of Treatment: Patient appointment with Dr. Heath on May 22, 2019. Wrote a prescription for a total number of 15 Grandy. I shared the patient I stop list with her. Pasty reevaluate sooner if worse or any questions or concerns. - Differential Dx/Diagnosis Provider Diagnosis: Chronic back pain Discharge ED - Sign-Out/Discharge Documenting (check all that apply): Patient Departure All imaging exams completed and their final reports reviewed: No Studies - Discharge Plan Condition: Stable Disposition: HOME Prescriptions: HYDROcodone/ACETAMIN 5-325 MG* [Grandy 5-325 TAB*] 1 tab PO TID #15 tab MDD 3 Patient Education Materials: Chronic Back Pain (DC) Referrals: Cortney Orantes MD [Primary Care Provider] - Additional Instructions: FOLLOW UP WITH DR ORANTES 05/22/19 SCHEDULED. GET REEVALUATED SOONER IF NOT IMPROVING OR WORSE OR ANY QUESTIONS OR CONCERNS. - Billing Disposition and Condition Condition: STABLE Disposition: Home
== END 2019-05-16 16:33 | disposition home or self-care (01) ==
LOC: UCCORT 14:26
DX: M54.9 Dorsalgia, unspecified (principal); G89.29 Other chronic pain; F17.210 Nicotine dependence, cigarettes, uncomplicated; Z88.0 Allergy status to penicillin; Z79.899 Other long term (current) drug therapy
CPT/HCPCS: 99212; G0463